=== PATIENT | male | born 1950 | race Caucasian/White ===

== ENCOUNTER 2019-08-22 04:39 | Inpatient (IN) | payer MEDICARE, OTHER ==
[~2019-08-22] VITALS: Ht 175.3 cm; Wt 88.2 kg
[2019-08-22] MEDS ORDERED: MORPHINE SULFATE 4 MG/ML SYR/VIAL IV ONE (06:00)
[2019-08-22] MEDS ORDERED: ONDANSETRON HCL 4 MG/2 ML VIAL IV ONE (06:00)
[2019-08-22 06:15] LABS: Basophils # (auto) 0 uL; Basophils % (auto) 0.1 % (0.0-2.0); Eosinophils # (auto) 0 uL; Eosinophils % (auto) 0.1 % (0.0-7.0); Hematocrit 47.9 % (41.0-53.0); Hemoglobin 16.8 g/dL (13.5-17.5); Lymphocytes # (auto) 1.1 uL; Lymphocytes % (auto) 6.9 % (10.0-50.0); Mean Corpuscular Hemoglobin 32.9 pg (28.0-32.0); Monocytes # (auto) 0.8 uL; Monocytes % (auto) 5.3 % (0.0-12.0); Neutrophils # (auto) 13.4 uL; Neutrophils % (auto) 87.6 % (37.0-80.0); Nucleated Red Blood Cells % 0.1 %; Platelet Count (auto) 149 10^3/uL (140-450); Red Cell Distribution Width 12.4 % (11.8-14.3); White Blood Cell 15.3 10^3/uL (4.4-10.8)
[2019-08-22 06:19] LABS: INR 1.01 (0.9-1.15); Partial Thromboplastin Time 30.8 sec (23.64-32.05)
[2019-08-22 06:26] LABS: Alanine Aminotransferase 34 U/L (16-61); Albumin 3.4 g/dL (3.4-5.0); Amylase 51 U/L (25-115); Anion Gap 7 (5-15); Aspartate Aminotransferase 20 U/L (15-37); BUN/Creatinine Ratio 17.9; Blood Urea Nitrogen 20 mg/dL (7-18); Calcium 8.7 mg/dL (8.5-10.1); Carbon Dioxide 24 mmol/L (21-32); Chloride 106 mmol/L (98-107); GFR African American 84 mL/min; GFR Non-African American 69 mL/min; Glucose 122 mg/dL (74-106); Lipase 132 U/L (73-393); Magnesium 2.2 mg/dL (1.6-2.6); Sodium 137 mmol/L (136-145)
[2019-08-22 06:31] LABS: Alkaline Phosphatase 103 U/L (45-117); Bilirubin, Total 1.1 mg/dL (0.2-1.0); Total Protein 7.6 g/dL (6.4-8.2)
[2019-08-22] MEDS ORDERED: SODIUM CHLORIDE 0.9% 1,000 ML IV ONE ×2 (06:49)
[2019-08-22] MEDS ORDERED: cefTRIAXone 1GM/50ML D5W 50 ML IV ONE (07:00)
[2019-08-22] MEDS ORDERED: metroNIDAZOLE 500MG/100ML 100 ML IV ONE ×2 (07:00→14:00)
[2019-08-22] MEDS ORDERED: NITROGLYCERIN 0.4 MG SL TAB SL PRN (09:15)
[2019-08-22] MEDS ORDERED: ENALAPRILAT 1.25 MG/ML-1ML VIAL IV PRN (09:15)
[2019-08-22] MEDS ORDERED: ACETAMINOPHEN 500 MG TAB PO PRN (09:15)
[2019-08-22] MEDS ORDERED: ONDANSETRON HCL 4 MG/2 ML VIAL IV PRN (09:15)
[2019-08-22] MEDS ORDERED: MORPHINE SULF INJ 2 MG/ML SYRINGE 1ML IV PRN (09:15)
[2019-08-22] MEDS: SODIUM CHLORIDE 0.9% 1,000 ML IV SCH ×2 (09:15→19:15)
[2019-08-22] MEDS: HYDROmorphone HCL 2 MG/ML VL IV PRN ×3 (09:44→20:23)
[2019-08-22 09:50] LABS: Urine Bacteria NONE SEEN /hpf (None Seen); Urine Blood Negative /uL (Negative); Urine Mucus FEW (None Seen); Urine Specific Gravity 1.022 (1.001-1.035); Urine WBC 2 /hpf (0 - 3)
--- NOTE | 2019-08-22 10:15 | NUR ---
Patient Arrived from ER Report from Dewayne RN in ER. Patient is ambulatory, no s/s of distress at this time. IV fluid and flagyl hanging at bedside. Patient is A & O x4, POC discussed with patient. Patient is Med/surg. BP 138/77, HR 80, RR 18, O2 95%, T 98.3, pain 3/10, patient states "tolerable". Patient reports the pain is in the lower abdomen, comes and goes. Patient oriented to room and hospital as well as visiting hours. Educated patient to call for assistance as needed. Bed is in low, locked position, call light within reach. Will continue to monitor Q1h and PRN.
[2019-08-22] MEDS: FAMOTIDINE (10MG/ML) 2ML VL IV SCH ×2 (11:59→22:07)
[2019-08-22] MEDS: LEVOFLOXACIN 500MG 100 ML IV SCH (11:59)
[2019-08-22 13:00] VITALS: BP 138/77
[2019-08-22 17:00] VITALS: BP 157/84
[2019-08-22 18:30] VITALS: BP 143/90
--- NOTE | 2019-08-22 19:25 | NUR ---
Opening Shift Note Received report from rosalina Mandujano RN. Assumed care of patient, awake and alert resting in bed. No S/S of distress/SOB, but complains of pain to lower abdomen 6/10. Instructed on POC and to call for assist PRN, will continue to monitor for changes Q1hr and PRN. Bed placed in lowest position, bed alarm turned on and call light within reach.
[2019-08-22 20:00] VITALS: BP 148/71
[2019-08-22 22:00] VITALS: BP 148/71
[2019-08-23 05:00] VITALS: BP 146/74
[2019-08-23] MEDS: SODIUM CHLORIDE 0.9% 1,000 ML IV SCH (06:09)
--- NOTE | 2019-08-23 07:10 | NUR ---
ROUNDS PATIENT IS ALERT AND ORIENTED, NO DISTRESS NOTED AND PATIENT DENIES PAIN THIS MORNING.
[2019-08-23 07:38] LABS: Basophils # (auto) 0 uL; Basophils % (auto) 0.1 % (0.0-2.0); Eosinophils # (auto) 0 uL; Eosinophils % (auto) 0.3 % (0.0-7.0); Hematocrit 46.9 % (41.0-53.0); Lymphocytes # (auto) 1.6 uL; Lymphocytes % (auto) 19.8 % (10.0-50.0); Mean Corpuscular Hemoglobin 32.6 pg (28.0-32.0); Mean Corpuscular Hgb Conc. 34.1 g/dL (32.0-36.0); Mean Corpuscular Volume 95.4 fL (80.0-100.0); Monocytes # (auto) 0.6 uL; Monocytes % (auto) 6.8 % (0.0-12.0); Nucleated Red Blood Cells % 0.1 %; Platelet Count (auto) 129 10^3/uL (140-450); Red Blood Cells 4.92 10^6/uL (4.5-5.90); Red Cell Distribution Width 12.6 % (11.8-14.3); White Blood Cell 8.2 10^3/uL (4.4-10.8)
[2019-08-23 07:54] LABS: Calcium 8.6 mg/dL (8.5-10.1); Potassium 4.1 mmol/L (3.5-5.1)
[2019-08-23 07:59] LABS: BUN/Creatinine Ratio 11.1
--- NOTE | 2019-08-23 08:00 | NUR ---
Opening Shift Note Assumed care of patient, awake and alert, oriented x 4 and verbally responsive. Respiratory even and unlabored. No S/S of distress/SOB or pain. Skin is warm and dry to touch. Instructed on POC and to call for assist PRN, will continue to monitor for changes Q1hr and PRN.
[2019-08-23 09:00] VITALS: BP 136/84
[2019-08-23] MEDS: FAMOTIDINE (10MG/ML) 2ML VL IV SCH (09:06)
[2019-08-23] MEDS: LEVOFLOXACIN 500MG 100 ML IV SCH (09:07)
[2019-08-23 13:00] VITALS: BP 145/87
[2019-08-23] MEDS ORDERED: SODIUM CHLORIDE 0.9% 1,000 ML IV SCH (13:00)
[2019-08-23] MEDS ORDERED: LEVO500T21 PO (13:03)
[2019-08-23] MEDS ORDERED: METR500T PO (13:03)
[2019-08-23 14:21] VITALS: BP 145/87
--- NOTE | 2019-08-23 15:25 | NUR ---
Discharge instructions given as ordered. Encourage to follow up with [facility]D ([facility])as instructed. All questions and concerns addressed. Patient verbalized understanding. Medication reconciliation form completed and copy given to patient. IV removed with catheter intact, pressure dressing applied. Patient taken to vehicle via wheelchair with all personal belongings, accompanied by staff and family member. No distress noted at time of departure.
== END 2019-08-23 15:25 | disposition home or self-care (01) | DRG 871 ==
LOC: ER 04:43 → OVERFLOW 04:44 → WEST WING 10:10
PROVIDERS: ADMIT Nurse Practitioner Acute Care; ATTEND Internal Medicine
DX: A41.9 Sepsis, unspecified organism (principal); N17.0 Acute kidney failure with tubular necrosis; K57.32 Diverticulitis of large intestine without perforation or abscess without bleeding; Z87.442 Personal history of urinary calculi; N18.3 Chronic kidney disease, stage 3 (moderate)
CPT/HCPCS: 36415; 71045; 74176; 80048; 80053; 80061; 81001; 82150; 83605; 83690; 83735; 84484; 85025; 85610; 85730; 87040; 93005; 96365; 96367; 96375; G0378; J0696; J1956; J2405; J3490